=== PATIENT | male | born 1990 | race Caucasian/White ===

== ENCOUNTER 2024-04-06 09:23 | Emergency (ER) | payer BC ==
[~2024-04-06] VITALS: Ht 185.4 cm; Wt 104.8 kg
[2024-04-06 09:36] VITALS: TEMP 98.8
[2024-04-06] MEDS ORDERED: CLIN300C63 PO (11:21)
[2024-04-06] MEDS: ketorolac trometh. 30mg/ml inj. IM ONE (11:34)
[2024-04-06] MEDS: CefTRIAXone 1000mg IM Kit (w/lidocaine diluent) IM ONE (11:35)
[2024-04-06 11:47] VITALS: BP 128/84; PULSE 57; RESP 16; O2SAT 98
== END 2024-04-06 11:49 | disposition home or self-care (01) ==
LOC: ER 09:24
DX: R60.0 Localized edema (principal); M79.662 Pain in left lower leg
CPT/HCPCS: 93971; 96372; 99285; J0696; J1885